=== PATIENT | female | born 1985 | race Caucasian/White ===

== ENCOUNTER 2016-04-17 10:19 | Emergency (ER) | payer MEDICAID, OTHER ==
[~2016-04-17] VITALS: Ht 170.2 cm; Wt 70.0 kg
[~2016-04-17 10:19] MED LIST: HYDR-3533 PO; IBUP600 PO; XANA1TAB6 PO
[2016-04-17 10:21] VITALS: BP 138/92; PULSE 110; RESP 20; TEMP 98.8; O2SAT 99
--- NOTE | 2016-04-17 12:36 | PD ---
HPI Chief Complaint: Musculoskeletal Complaint Time Seen by Provider: 12:32 Travel History International Travel<30 days: No Contact w/Intl Traveler<30days: No Traveled to known affect area: No History of Present Illness HPI Patient is a 30-year-old female presenting to emergency Department for evaluation of left lower leg pain. Patient states the pain started approximately 3 weeks ago. She reports it as a pulling sensation or a mild charley horse. She states the pain is intermittent, worse when she wakes up in the morning but it occurs at random times throughout the day as well. She denies any recent bed rest or long trips. She has no history of DVT. This morning she reports the pain is also in her left lower back and lateral aspect of the left upper leg. She denies any weakness in her lower extremities, she further denies any edema or erythema. PFSH Past Medical History Blood Disorders: No Anxiety: Yes Depression: No Cancer: No Cardiovascular Problems: No Endocrine: No Gastrointestinal Disorders: No Genitourinary: No Immune Disorder: No Implanted Vascular Access Dvce: No Musculoskeletal: No Neurologic: No Psychiatric: No Reproductive: No Respiratory: No Pneumonia: Yes (Feb 2009) PNEUMOCCOCAL Vaccine (Year): 2 ?: Not LMP: 03/18/2016 Para: 1 Miscarriage: 0 : 0 Past Surgical History Abdominal Surgery: Yes (HERNIA) Other Surgery: Yes (back surgery, L2 fracture) Social History Alcohol Use: No Tobacco Use: No Substance Use: No Allergies-Medications (Allergen,Severity, Reaction): Coded Allergies: No Known Allergies (Verified , 04/17/16) Reported Meds & Prescriptions Reported Meds & Active Scripts Active Ibuprofen 600 Mg Tab 600 Mg PO Q6H PRN Review of Systems Except as stated in HPI: all other systems reviewed are Neg Musculoskeletal: Positive: Myalgias, Cramping, Pain Neurologic: No: Weakness, Focal Abnormalities Physical Exam Narrative GENERAL: Well-developed, well-nourished, alert female. Resting comfortably in no acute distress. SKIN: Warm and dry. HEAD: Atraumatic. Normocephalic. EYES: Pupils equal and round. No scleral icterus. No injection or drainage. ENT: No nasal bleeding or discharge. Mucous membranes pink and moist. NECK: Trachea midline. No JVD. CARDIOVASCULAR: Regular rate and rhythm. No murmur appreciated. RESPIRATORY: No accessory muscle use. Clear to auscultation. Breath sounds equal bilaterally. GASTROINTESTINAL: Abdomen soft, non-tender, nondistended. Hepatic and splenic margins not palpable. MUSCULOSKELETAL: No obvious deformities. No clubbing. No cyanosis. No edema. No erythema noted to left lower leg. Negative Homans sign. 5/5 muscle strength in bilateral lower extremities. Patient is neurovascularly intact. NEUROLOGICAL: Awake and alert. No obvious cranial nerve deficits. Motor grossly within normal limits. Normal speech. PSYCHIATRIC: Appropriate mood and affect; insight and judgment normal. Data Data Last Documented VS Vital Signs Date Time Temp Pulse Resp B/P Pulse Ox O2 Delivery O2 Flow Rate FiO2 04/17/16 10:21 98.8 110 20 138/92 99 Room Air Orders Us Leg Venous Doppler (04/17/16 ) [facility] Medical Decision Making Medical Screen Exam Complete: Yes Emergency Medical Condition: Yes Interpretation(s) Vital Signs Date Time Temp Pulse Resp B/P Pulse Ox O2 Delivery O2 Flow Rate FiO2 04/17/16 10:21 98.8 110 20 138/92 99 Room Air Differential Diagnosis DVT versus thrombophlebitis versus muscle spasm versus discogenic pain versus other Narrative Course Patient is a 30-year-old female presenting to emergency evaluation of left lower leg pain. Patient is significantly concerned that she has a DVT in her lower leg. Patient is neurovascularly intact, there is no erythema or edema noted. Less likely would be a DVT. Ultrasound ordered and pending. Workup initiated triage, care of patient will be transferred to provider medical bed is available. Scripts Ibuprofen 600 Mg [id number] Mg PO Q6H PRN (Pain/Inflammation) #40 TAB Ref 0 Prov:Ketty Gutierrez DO 04/17/16 Suzette Thayer Apr 17, 2016 12:36
--- NOTE | 2016-04-17 14:22 | RADRPT ---
EXAM DATE/TIME: 04/17/2016 13:28 [place] COMPARISON: No previous studies available for comparison. INDICATIONS : Left calf pain. MEDICAL HISTORY : Left leg pain. SURGICAL HISTORY : section. Hernia repair. ENCOUNTER: Initial ACUITY: 3 weeks PAIN SCORE: 5/10 LOCATION: Left leg. TECHNIQUE: Venous ultrasound of the leg was performed from the inguinal ligament to the proximal calf. Real-link e, color Doppler and spectral tracing, compression and augmentation techniques were used. FINDINGS: There is normal compressibility of the deep venous system from the inguinal region to the proximal ca lf. No echogenic clot is seen in the lumen of the common femoral, femoral, popliteal, and posterior tibial veins. There is a normal response of the venous system to proximal and distal augmentation an d respiration. Ultrasound imaging in the area of pain demonstrates no abnormality. CONCLUSION: No DVT is identified within the left lower extremity. Cesar Aguiar MD on April 17, 2016 at 14:19 Board Certified Radiologist. This report was verified electronically.
[2016-04-17] MEDS ORDERED: IBUP-232 PO (14:33)
--- NOTE | 2016-04-17 14:34 | PD ---
Physical Exam Date Seen by Provider: Apr 17, 2016 Data Data Last Documented VS Vital Signs Date Time Temp Pulse Resp B/P Pulse Ox O2 Delivery O2 Flow Rate FiO2 04/17/16 10:21 98.8 110 20 138/92 99 Room Air Orders Us Leg Venous Doppler (04/17/16 ) [facility] Medical Record Reviewed: Yes Supervised Visit with ADELINA: Yes Interpretation(s) Vital Signs Date Time Temp Pulse Resp B/P Pulse Ox O2 Delivery O2 Flow Rate FiO2 04/17/16 10:21 98.8 110 20 138/92 99 Room Air Last Impressions Lower Extremity Ultrasound 04/17/16 0000 Signed Impressions: Service Date/Time: Sunday, April 17, 2016 13:28 - CONCLUSION: No DVT is identified within the left lower extremity. Csear Aguiar MD Differential Diagnosis DVT, leg strain, muscle strain Narrative Course I, Dr. ANDREWS, have reviewed the advance practice practitioner's documentation and am in agreement, met with the patient face to face, made the diagnosis, and the medical decision making was done by me. *My assessment and Findings: Muscle strain, left lower extremity pain Patient with left lower extremity calf pain which has been ongoing for the past 3 weeks, she reports increased pain and cramping, patient concerned for possible DVT. Patient denies any history of immobilization. Patient denies ingestion of any oral contraceptives, no history of DVT or PE. Left lower extremity with no signs of obvious DVT. Discussed with patient need to have repeat ultrasound in 1 week if symptoms persist. Patient will return to emergency room earlier if symptoms return or worsen. A copy of pt's ultrasound was given to patient at discharge Diagnosis Primary Impression: Pain and swelling of lower leg Qualified Code: M79.662 - Pain and swelling of lower leg, left Patient Instructions: General Instructions Departure Forms: Tests/Procedures, Work Release Enter return to work date: Apr 18, 2016 Additional Instruction: Please have your ultrasound repeated in 1 week if swelling persists Please follow up with your primary care doctor Return to emergency as needed Scripts Ibuprofen 600 Mg [id number] Mg PO Q6H PRN (Pain/Inflammation) #40 TAB Ref 0 Prov:Ketty Andrews DO 04/17/16 Disposition: 01 DISCHARGE HOME Condition: Stable Ketty Andrews DO Apr 17, 2016 14:33
== END 2016-04-17 14:57 | disposition home or self-care (01) ==
LOC: NEPC 10:19
DX: M79.662 Pain in left lower leg (principal); R22.42 Localized swelling, mass and lump, left lower limb; M54.5 Low back pain; Z87.01 Personal history of pneumonia (recurrent); Z86.59 Personal history of other mental and behavioral disorders
CPT/HCPCS: 93971